=== PATIENT | female | born 1995 | race Caucasian/White ===

== ENCOUNTER 2017-08-09 13:07 | Emergency (ER) | payer OTHER ==
[~2017-08-09] VITALS: Ht 160 cm; Wt 99.9 kg
[~2017-08-09 13:07] MED LIST: FIORICET,ESG1 TABLET PO; MIRENA52 MG IY; MOTRIN600 MG PO; Motrin PO; NAPROSYN500 MG PO; Percocet 5/325,Endoc PO; ULTRACET1 TABLET PO; VALIUM5 MG PO
[2017-08-09 15:47] VITALS: BP 123/75
== END 2017-08-09 15:48 | disposition home or self-care (01) ==
LOC: EME 13:07
DX: O99.89 Other specified diseases and conditions complicating pregnancy, childbirth and the puerperium (principal); S86.911A Strain of unspecified muscle(s) and tendon(s) at lower leg level, right leg, initial encounter; X58.XXXA Exposure to other specified factors, initial encounter; Z3A.29 29 weeks gestation of pregnancy
CPT/HCPCS: 93971; 99281; 99283

== ENCOUNTER 2017-10-16 04:28 | Inpatient (IN) | payer OTHER ==
[~2017-10-16] VITALS: Ht 160 cm; Wt 102.7 kg
[2017-10-16] VITALS (9 sets, daily range): BP systolic 105–133; BP diastolic 54–87
[~2017-10-16 04:28] MED LIST changes: +PRENATAL TABLE1 EAC3 PO
[2017-10-16 05:33] LABS: HEMATOCRIT 37.5 % (36.0-46.0); HEMOGLOBIN 12.5 G/DL (11.9-15.5); MCH 27.7 PG (29.0-34.0); MCHC 33.3 G/DL (30.0-36.0); PLATELET COUNT 264 K/uL (156-360); RBC DIS.WIDTH-CV 14.1 % (11.8-14.6); RBC DIS.WIDTH-SD 42.5 % (39-53); RED BLOOD COUNT 4.52 M/uL (3.80-5.20); WHITE BLOOD COUNT 10.1 K/uL (4.1-10.2)
[2017-10-17 02:54] VITALS: BP 109/59
[2017-10-17 07:07] LABS: BASOPHIL (%) 0.3 % (0-1); EOSINOPHIL (%) 2.5 % (0-5); EOSINOPHIL COUNT 0.3 K/uL (0-0.3); HEMATOCRIT 37.3 % (36.0-46.0); HEMOGLOBIN 11.7 G/DL (11.9-15.5); IMMATURE GRANULOCYTE (%) 0.9 % (0.0-0.7); LYMPHOCYTE (%) 15.8 % (15-42); MCH 26.7 PG (29.0-34.0); MCHC 31.4 G/DL (30.0-36.0); MCV 85.2 FL (83-99); MONOCYTE (%) 6.5 % (3-12); MONOCYTE COUNT 0.8 K/uL (0-0.8); NEUTROPHIL COUNT 9.6 K/uL (1.8-6.4); PLATELET COUNT 252 K/uL (156-360); RBC DIS.WIDTH-CV 14.3 % (11.8-14.6); RED BLOOD COUNT 4.38 M/uL (3.80-5.20); WHITE BLOOD COUNT 12.9 K/uL (4.1-10.2)
[2017-10-17 07:21] VITALS: BP 104/54
[2017-10-17 15:06] VITALS: BP 115/53
[2017-10-17 19:00] VITALS: BP 114/55
[2017-10-17 22:58] VITALS: BP 113/72
[2017-10-18 03:12] VITALS: BP 104/56
[2017-10-18 07:11] VITALS: BP 112/56
[2017-10-18 10:29] VITALS: BP 118/58
[2017-10-18] MEDS ORDERED: IBUPROFEN800 MG PO (11:34)
[2017-10-18] MEDS ORDERED: ENDOCET 5-3251 EACH PO (11:34)
[2017-10-18] MEDS ORDERED: PORTIA 28 DA1 TABLET PO (11:34)
== END 2017-10-18 13:24 | disposition home or self-care (01) | DRG 766 ==
LOC: 2WEST 04:28 → 2SOUTH 09:59 → 2WEST 10-18 13:24
PROVIDERS: Obstetrics & Gynecology
PROC: 10D00Z1 Extraction of Products of Conception, Low, Open Approach (ICD-10-PCS; principal; 2017-10-16)
DX: O99.214 Obesity complicating childbirth (principal); E66.9 Obesity, unspecified; Z37.0 Single live birth; O99.820 Streptococcus B carrier state complicating pregnancy; Z68.30 Body mass index [BMI] 30.0-30.9, adult; Z3A.39 39 weeks gestation of pregnancy
CPT/HCPCS: 85025; 85027; 86850; 86900; 86901; 88307; J0690; J1170; J1200; J2274; J2405; J7120